=== PATIENT | female | born 1960 | race American Indian/Alaskan Native ===

== ENCOUNTER 2018-10-20 22:16 | Observation (INO) | payer BC ==
[2018-10-20 22:41] VITALS: BMI 24.1
--- NOTE | 2018-10-20 22:56 | PDOC ---
History of Present Illness - General Chief Complaint: Injury Stated Complaint: FALL/BLEEDING Time Seen by Provider: 10/20/18 22:55 - History of Present Illness Initial Comments: 10/21/18 00:03 The patient is a 58 year old female with a history of breast CA who presents for evaluation following a fall. The patient reports that she was at her birthday alliance party today and was in her room when she experienced palpitations and lightheadedness and then syncopated striking her face onto the floor. She states that she does not remember passing out and woke up on the floor after her family heard her fall. She notes that she has had episodes where she had palpitations and lightheadedness in the past, but has never "passed out" before. She otherwise denies headache, fevers, chills, chest pain, SOB, nausea , vomiting, abdominal pain, or changes with urination or bowel movements. Past History - Past Medical History Allergies/Adverse Reactions: Allergies Allergy/AdvReac Type Severity Reaction Status Date / Time No Known Allergies Allergy Verified 10/20/18 22:41 Home Medications: Ambulatory Orders Ascorbic Acid [Vitamin C] 250 mg PO DAILY 10/20/18 Aspirin 81 mg PO DAILY 10/20/18 Metformin HCl [Glucophage] 500 mg PO DAILY 10/20/18 Rosuvastatin Calcium [Crestor] 20 mg PO HS 10/20/18 Vit D3/Folic Acid/B2/B6/B12 [Folgard Tablet] 1 each PO DAILY 10/20/18 - Suicide/Smoking/Psychosocial Hx Smoking History: Never smoked Have you smoked in the past 12 months: No Information on smoking cessation initiated: No Hx Alcohol Use: Yes Drug/Substance Use Hx: No Review of Systems - Review of Systems Comments:: 10/21/18 00:07 Constitutional: No fevers, chills, fatigue, malaise HEENT: Head Trauma. No Rhinorrhea, nasal congestion, visual changes Cardiovascular: Syncope, palpitations, Lightheadedness. No chest pain, Respiratory: No Cough, SOB, Hemoptysis, Gastrointestinal: No Abdominal pain, Nausea, Vomiting, Constipation, Diarrhea, Melena Genitourinary: No Dysuria, Frequency, Urgency, Hesitancy, Hematuria, Flank pain Musculoskeletal: No Myalgia, arthralgia Skin: No rashes, itching, bruising, pallor Neurologic: No Headache, Dizziness, Numbness, Weakness, or Tingling Psychiatric: No Hallucinations. No SI or HI *Physical Exam - Vital Signs Last Vital Signs Temp Pulse Resp BP Pulse Ox 99.3 F 87 19 129/76 100 10/20/18 22:16 10/20/18 22:16 10/20/18 22:16 10/20/18 22:16 10/20/18 22:16 - Physical Exam Comments: 10/21/18 00:08 General Appearance: Nourished. No Apparent Distress HEENT: EOMI, HARRIS. 2cm laceration to the mucosal layer of the lower lip extending through to a 1cm laceration to the outer lower lip. 1cm laceration to the chin. No Pharyngeal Erythema, Tonsillar Exudate, Tonsillar Erythema Neck: No Cervical Lymphadenopathy Respiratory/Chest: Lungs Clear, Normal Breath Sounds. No Crackles, Rales, Rhonchi, Wheezing Cardiovascular: Regular Rhythm, Regular Rate. No Murmur, Gallops, Rubs Gastrointestinal/Abdominal: Normal Bowel Sounds, Soft. No Guarding, Rebound, Tenderness Musculoskeletal: No CVA Tenderness Extremity: Normal Capillary Refill Integumentary: Normal Color, Dry, Warm Neurologic: ceramics instructor II-XII NML intact, Fully Oriented, Alert, Normal Mood/Affect, Normal Response, Motor Strength 5/5. Procedures - Laceration/Wound Repair Lower Lip Wound Length: to 2.5 cm Wound Explored: clean, no foreign body present Wound's Depth, Shape: linear Irrigated w/ Saline: Yes Anesthesia: 1% Lidocaine Amount of Anesthetic (ccs): 4 Wound Repaired With: Sutures Suture Size/Type: 5:0, nylon Number of Sutures: 4 Layer Closure: Yes Deep Layer Suture Size/Type: 5:0, other (Polysorb) Number of Deep Layer Sutures: 2 Lower Jaw Wound Length: to 2.5 cm Wound Explored: clean, no foreign body present Wound's Depth, Shape: linear Irrigated w/ Saline: Yes Anesthesia: 1% Lidocaine Amount of Anesthetic (ccs): 2 Wound Repaired With: Sutures Suture Size/Type: 5:0, nylon Number of Sutures: 3 Layer Closure: Yes Sterile Dressing Applied: Yes Heart Score/ECG Review #1 ECG reviewed & interpreted by me at: 00:36 10/21/18 00:36 HR 81 SD 172 QRS 86 QTc 448 Normal Sinus Rhythm No Acute ST Changes ED Treatment Course - LABORATORY CBC & Chemistry Diagram: 10/20/18 23:50 10/20/18 23:50 Medical Decision Making - Medical Decision Making 10/21/18 00:10 The patient is a 58 year old female with a history of breast CA who presents for evaluation following a fall. Differential includes but is not limited to: ACS, Arrythmia, Intracranial Process, Infectious, Metabolic Derangement. Given the patient's history and physical exam, we will obtain a cbc, cmp, troponin, ua , ekg, chest plain film, head ct, facial bone ct, cervical ct to evaluate further. The patient's lacerations will require irrigation and repair. We will continue to monitor and reassess while here in the ED. 10/21/18 05:19 CBC, cmp, troponin, ua are unremarkable. Head CT, facial Bone CT, and cervical CT did not demonstrate any acute process as preliminarily read by our flight communications officer radiologist. The patient's laceration was repaired with sutures. Given the location of the patient's laceration within the mucosal layer of the patient's lower lip, the inner laceration was loosely repaired to help reduce the chance for infection and the patient will require antibiotic coverage on discharge. The patient's sutures will need to be removed in 7 days. Given the patient's syncopal episode, the patient will require admission for further monitoring and management. We discussed the case with the admitting team who accepted the patient for admission. *DC/Admit/Observation/Transfer Diagnosis at time of Disposition: Syncope and collapse - Discharge Dispostion Condition at time of disposition: Stable Decision to Admit order: Yes - Referrals - Patient Instructions - Post Discharge Activity
--- NOTE | 2018-10-21 | PDOC ---
Documentation entered by Irene Stevens SCRIBE, acting as scribe for Jem Chaudhari MD. Jem Chaudhari MD: This documentation has been prepared by the Hilda garcia Nirvannie, SCRIBE, under my direction and personally reviewed by me in its entirety. I confirm that the documentation accurately reflects all work, treatment, procedures, and medical decision making performed by me. Attending Attestation - Resident Resident Name: Elder Hirsch - ED Attending Attestation I have performed the following: I have examined & evaluated the patient, The case was reviewed & discussed with the resident, I agree w/resident's findings & plan, Exceptions are as noted - HPI HPI: 10/20/18 23:24 The patient is a 58 year old female, with a significant past medical history of breast cancer, who presents to the emergency department with syncopal episode. As per patient, she was dancing at a libertarian when she began to experience lightheadedness, palpitations, and subsequent LOC. Pt denies CP/SOB. Patient endorses similar episodes in the past, usually triggered by stress. She denies recent fevers, chills, or headache. She denies recent nausea, vomit, diarrhea or constipation. She denies recent dysuria, frequency, urgency or hematuria. Allergies: NKDA Past surgical history: None reported. Social history: Social alcohol usage. Nonsmoker. Denies recreational drug use. Familial History: Paternal and brother [place]. (Brother in 40s). Primary Care Physician: Dr. Con Pickering - Physicial Exam PE: 10/20/18 23:25 GENERAL: Awake, alert, and fully oriented, in no acute distress. HEAD: + through and through laceration to lower lip, 1cm outside, 2cm inside EYES: PERRLA, EOMI, sclera anicteric, conjunctiva clear ENT: Auricles normal inspection, hearing grossly normal, nares patent, oropharynx clear without exudates. Moist mucosa NECK: Nontender, no stepoffs, Normal ROM, supple, no lymphadenopathy, JVD, or masses LUNGS: Breath sounds equal, clear to auscultation bilaterally. No wheezes, and no crackles HEART: Regular rate and rhythm, normal S1 and S2, no murmurs, rubs or gallops ABDOMEN: Soft, nontender, normoactive bowel sounds. No guarding, no rebound. No masses EXTREMITIES: Normal range of motion, no edema. No clubbing or cyanosis. No cords, erythema, or tenderness NEUROLOGICAL: Cranial nerves II through XII intact. 5/5 strength and sensation in all extremities, Normal speech, normal gait, normal cerebellar function SKIN: Warm, Dry, normal turgor, no rashes or lesions noted. - Medical Decision Making 10/21/18 00:05 58 F with syncopal episode while dancing. Pt's EKG shows NSR. However, given palpitations and sudden LOC, concerning for possible paroxysmal arrhythmia. - Labs - CT head/c-spine/facial bones - Lac repair - Tele obs 10/21/18 02:21 Labs wnl CTs negative Lip lac repaired Will start prophylactic keflex given intraoral laceration Sutures to be removed in 5-7 days. Pt admitted to Dr. Pickering
[2018-10-21 00:03] LABS: EOS % 1.9 % (0-4.5); HEMATOCRIT 40.9 % (32.4-45.2); HEMOGLOBIN 13.2 GM/dL (10.7-15.3); MCH 28.9 pg (25.7-33.7); MCHC 32.2 g/dl (32.0-36.0); MEAN CELL VOLUME 89.6 fl (80-96); MEAN PLT VOLUME 8.7 fl (7.5-11.1); MONO % 6.8 % (3.8-10.2); NEUT % 60.3 % (42.8-82.8); PLATELET COUNT 181 K/MM3 (134-434); RBC 4.57 M/mm3 (3.60-5.2); RDW 13.7 % (11.6-15.6); WHITE BLOOD COUNT 7.9 K/mm3 (4.0-10.0)
[2018-10-21 00:22] LABS: URINE APPEARANCE CLEAR; URINE BILIRUBIN NEGATIVE (NEGATIVE); URINE COLOR YELLOW; URINE GLUCOSE (UA) NEGATIVE (NEGATIVE); URINE KETONE NEGATIVE (NEGATIVE); URINE LEUK ESTERASE TRACE (NEGATIVE); URINE NITRITE NEGATIVE (NEGATIVE); URINE PROTEIN NEGATIVE (NEGATIVE); URINE UROBILINOGEN 0.2 mg/dL (0.2-1.0)
[2018-10-21 00:25] LABS: EPI CELLS FEW /HPF (0-5/HPF); URINE BACTERIA 2 /hpf (NEGATIVE); URINE RBC 1 /hpf (0-4); URINE WBC 7 /hpf (0-5)
[2018-10-21 00:26] LABS: ALBUMIN 3.9 g/dl (3.4-5.0); ALK PHOS 74 U/L (45-117); ANION GAP 7 MMOL/L (8-16); BILIRUBIN,TOTAL 0.3 mg/dL (0.2-1); BLOOD UREA NITROGEN 12.6 mg/dL (7-18); CALCIUM 8.8 mg/dL (8.5-10.1); CHLORIDE 105 mmol/L (98-107); CO2 28 mmol/L (21-32); CREATININE 0.6 mg/dL (0.55-1.3); GLUCOSE,RANDOM 101 mg/dL (74-106); N-TERMINAL BNP 115.1 pg/ml (5-125); POTASSIUM 3.7 mmol/L (3.5-5.1); SGOT/AST 27 U/L (15-37); SGPT/ALT 37 U/L (13-61); SODIUM 140 mmol/L (136-145); TOT PROT 7.1 g/dl (6.4-8.2)
[2018-10-21] MEDS ORDERED: ACETAMINOPHEN 500 MG TABLET (FP) PO ONE (03:44)
[2018-10-21] MEDS ORDERED: CEPHALEXIN MONOHYDRATE 500 MG CAPSULE (UD) ONE (03:50)
[2018-10-21] MEDS ORDERED: ACETAMINOPHEN 325 MG TABLET (FP) ONE (03:50)
[2018-10-21] MEDS ORDERED: CEPHALEXIN MONOHYDRATE 500 MG CAPSULE (UD) PO ONE (03:54)
[2018-10-21] MEDS: CEPHALEXIN MONOHYDRATE 500 MG CAPSULE (UD) PO SCH ×2 (09:43→21:04)
[2018-10-21] MEDS: ASPIRIN COATED 81 MG TABLET.EC PO SCH (09:43)
--- NOTE | 2018-10-21 09:46 | CON.NEURO ---
Consult - History of Present Illness History of Present Illness: 58 year old female, with a significant past medical history of breast cancer ( hx of lumpectomy, chemo, RT> 10 yrs ago) , who presents to the emergency department with syncopal episode. As per patient, she was dancing at a alliance party when she began to experience lightheadedness, palpitations, and subsequent LOC. Pt denies CP/SOB. Patient endorses similar episodes in the past, usually triggered by stress, few times this yr. no hx of seizure, no toxic habits. She denies recent fevers, chills, or headache. She denies recent nausea, vomit, diarrhea or constipation. She denies recent dysuria, frequency, urgency or hematuria. HD CT (-), CT C spine : DJD R AA, and C4-C5 R CBC , SMA7, lFTS NL , UA (-) Allergies: NKDA Past surgical history: None reported. Social history: Social alcohol usage. Nonsmoker. Denies recreational drug use. Familial History: Paternal and brother [place]. (Brother in 40s). - Alcohol/Substance Use Hx Alcohol Use: Yes - Smoking History Smoking history: Never smoked Have you smoked in the past 12 months: No Home Medications - Allergies Allergies/Adverse Reactions: Allergies Allergy/AdvReac Type Severity Reaction Status Date / Time No Known Allergies Allergy Verified 10/20/18 22:41 - Home Medications Home Medications: Ambulatory Orders Ascorbic Acid [Vitamin C] 250 mg PO DAILY 10/20/18 Aspirin 81 mg PO DAILY 10/20/18 Metformin HCl [Glucophage] 500 mg PO DAILY 10/20/18 Rosuvastatin Calcium [Crestor] 20 mg PO HS 10/20/18 Vit D3/Folic Acid/B2/B6/B12 [Folgard Tablet] 1 each PO DAILY 10/20/18 Physical Exam-Neuro Vital Signs: Vital Signs Temperature 98.8 F 10/21/18 04:55 Pulse Rate 88 10/21/18 04:55 Respiratory Rate 18 10/21/18 04:55 Blood Pressure 143/89 10/21/18 04:55 O2 Sat by Pulse Oximetry (%) 98 10/21/18 04:55 Labs: CBC, BMP 10/20/18 23:50 10/20/18 23:50 Imaging - Results Cat Scan: Report Reviewed, Image Reviewed Problem List - Problems (1) Syncope and collapse Code(s): R55 - SYNCOPE AND COLLAPSE Assessment/Plan 58 year old female, with a significant past medical history of breast cancer, who presents to the emergency department with syncopal episode. As per patient, she was dancing at a alliance party when she began to experience lightheadedness, palpitations, and subsequent LOC. Pt denies CP/SOB. Patient endorses similar episodes in the past, usually triggered by stress. She denies recent fevers, chills; She denies recent nausea, vomit, diarrhea or constipation. She denies recent dysuria, frequency, urgency or hematuria. HD CT (-), CT C spine : DJD R AA, and C4-C5 R CBC , SMA7, lFTS NL , UA (-) AP : Syncopal episode associated with palpitations. nonfocal neruo exam--no clinical evidence to suggest seizure and doubt posterior circulation event. HX of COREY (preceding this)-- check MRI and DOPPLERS cardiology consult called -arrhythmia ACE. no AED needed at this juncture. DR WHITLEY
--- NOTE | 2018-10-21 10:17 | HP ---
Admitting History and Physical - Admission Chief Complaint: pt lost conscouness this am had episode palps last pm and this am also woke up rememberedbv what happened denied any other symptoms. no cp no n/v no sob doubt had seizureot witnessed sustained low lip cut and rt chin cut sutured in er ct neg faical bone pnd results History Source: Patient Limitations to Obtaining History: No Limitations - Past Medical History Reproductive: Yes: Other (h/o brest ca) ...: No ENT: Yes: Other (low lip chin sutures intact) Additional Past Medical History: diabetes 2 - Smoking History Smoking history: Never smoked Have you smoked in the past 12 months: No - Alcohol/Substance Use Hx Alcohol Use: No - Social History Usual Living Arrangement: Yes: With Spouse History of Recent Travel: No Home Medications - Allergies Allergies/Adverse Reactions: Allergies Allergy/AdvReac Type Severity Reaction Status Date / Time No Known Allergies Allergy Verified 10/20/18 22:41 - Home Medications Home Medications: Ambulatory Orders Ascorbic Acid [Vitamin C] 250 mg PO DAILY 10/20/18 Aspirin 81 mg PO DAILY 10/20/18 Metformin HCl [Glucophage] 500 mg PO DAILY 10/20/18 Rosuvastatin Calcium [Crestor] 20 mg PO HS 10/20/18 Vit D3/Folic Acid/B2/B6/B12 [Folgard Tablet] 1 each PO DAILY 10/20/18 Family Disease History - Family Disease History Family History: Unremarkable Review of Systems - Review of Systems Constitutional: reports: No Symptoms Eyes: reports: No Symptoms HENT: reports: No Symptoms Neck: reports: No Symptoms Cardiovascular: reports: No Symptoms Respiratory: reports: No Symptoms Gastrointestinal: reports: No Symptoms Genitourinary: reports: No Symptoms Breasts: reports: No Symptoms Reported Musculoskeletal: reports: No Symptoms Integumentary: reports: Other (healing wds) Neurological: reports: No Symptoms Endocrine: reports: No Symptoms Hematology/Lymphatic: reports: No Symptoms Psychiatric: reports: No Symptoms Physical Examination Vital Signs: Vital Signs Temperature 98.8 F 10/21/18 04:55 Pulse Rate 88 10/21/18 04:55 Respiratory Rate 18 10/21/18 04:55 Blood Pressure 143/89 10/21/18 04:55 O2 Sat by Pulse Oximetry (%) 98 10/21/18 04:55 Constitutional: Yes: Well Nourished Eyes: Yes: WNL HENT: Yes: WNL Neck: Yes: WNL Cardiovascular: Yes: WNL Respiratory: Yes: WNL Gastrointestinal: Yes: WNL ...Rectal Exam: Yes: Other Renal/: Yes: Urethral Discharge Musculoskeletal: Yes: WNL Extremities: Yes: WNL Edema: No Peripheral Pulses WNL: Yes Integumentary: Yes: Laceration (healing) Wound/Incision: Yes: Clean/Dry Labs: CBC, BMP 10/20/18 23:50 10/20/18 23:50 Assessment/Plan chk facial bone xrays mri pnd card ? 24 hr event recorder outpt?? cont all tx as is chk echo caratid to complete w/u
--- NOTE | 2018-10-21 11:08 | EKG ---
Test Reason : Blood Pressure : / mmHG Vent. Rate : 069 BPM Atrial Rate : 069 BPM P-R Int : 170 ms QRS Dur : 088 ms QT Int : 426 ms P-R-T Axes : 044 001 -09 degrees QTc Int : 456 ms NORMAL SINUS RHYTHM NORMAL ECG WHEN COMPARED WITH ECG OF 20-OCT-2018 22:19, CRITERIA FOR SEPTAL INFARCT ARE NO LONGER PRESENT Confirmed by GISELE LAWRENCE MD ([id number]) on 10/21/2018 11:08:03 AM [facility] Confirmed By:GISELE LAWRENCE MD
--- NOTE | 2018-10-21 11:16 | EKG ---
Test Reason : Blood Pressure : / mmHG Vent. Rate : 081 BPM Atrial Rate : 081 BPM P-R Int : 172 ms QRS Dur : 086 ms QT Int : 386 ms P-R-T Axes : 031 019 019 degrees QTc Int : 448 ms POOR DATA QUALITY, INTERPRETATION MAY BE ADVERSELY AFFECTED NORMAL SINUS RHYTHM POSSIBLE LEFT ATRIAL ENLARGEMENT SEPTAL INFARCT , AGE UNDETERMINED ABNORMAL ECG NO PREVIOUS ECGS AVAILABLE Confirmed by GISELE LAWRENCE MD ([id number]) on 10/21/2018 11:16:12 AM Referred By: Confirmed By:GISELE LAWRENCE MD
--- NOTE | 2018-10-21 13:00 | ECHO ---
Name: SOHAIL HART Exam:Adult Echocardiogram Study Date: 10/21/2018 11:50 AM Age: 58 yrs Reason For Study: syncope r/o valvular dz Height: 61 in Weight: 128 lb BSA: 1.6 m2 MMode/2D Measurements & Calculations IVSd: 0.90 cm Ao root diam: 2.8 cm LVIDd: 3.9 cm LA dimension: 3.4 cm LVIDs: 2.5 cm LVPWd: 0.90 cm LVPWs: 1.1 cm EDV(Teich): 65.0 ml ESV(Teich): 23.3 ml LVOT diam: 2.0 cm LAV (MOD-bp): 42.0 ml Doppler Measurements & Calculations MV E max iain: 48.4 cm/sec Ao V2 max: 112.6 cm/sec MV A max iain: 66.1 cm/sec Ao max P.1 mmHg MV E/A: 0.73 Ao V2 mean: 84.1 cm/sec MV dec time: 0.13 sec Ao mean P.3 mmHg Ao V2 VTI: 22.8 cm ESTIVEN(I,D): 2.4 cm2 ESTIVEN(V,D): 2.4 cm2 LV V1 max P.0 mmHg MR max iain: 439.4 cm/sec LV V1 mean P.7 mmHg MR max P.2 mmHg LV V1 max: 85.9 cm/sec LV V1 mean: 63.0 cm/sec LV V1 VTI: 17.1 cm SV(LVOT): 54.3 ml TR max iain: 235.9 cm/sec TR max P.4 mmHg PA V2 max: 109.3 cm/sec Med Peak E' Iain: 4.6 cm/sec PA max P.8 mmHg Med E/e': 10.5 Lat Peak E' Iain: 8.8 cm/sec Lat E/e': 5.5 Procedure The study was technically adequate with some images being suboptimal in quality. Left Ventricle The left ventricular size, thickness and function are normal. Ejection Fraction = 60-65%. Right Ventricle The right ventricle is normal in size and function. Atria Normal left and right atrial size and function. Mitral Valve There is mild mitral annular calcification. There is mild mitral valve prolapse. There is mild to mod erate mitral regurgitation. Tricuspid Valve The tricuspid valve is not well visualized, but is grossly normal. There is mild to moderate tricuspi d regurgitation. Right ventricular systolic pressure is 27 mmhg. Aortic Valve There is mild aortic sclerosis.;. The aortic valve opens well. The aortic valve is trileaflet. Trace aortic regurgitation. Pulmonic Valve The pulmonic valve is not well visualized. Great Vessels The aortic root is normal size. Pericardium/Pleura There is no pericardial effusion. Interpretation Summary There is no comparison study available. The left ventricular size, thickness and function are normal Ejection Fraction = 60-65%. The right ventricle is normal in size and function. Trace aortic regurgitation. There is mild to moderate tricuspid regurgitation. There is mild mitral valve prolapse. There is mild to moderate mitral regurgitation. Justus Cr MD 10/21/2018 01:00 PM
--- NOTE | 2018-10-21 13:39 | CON.CARD ---
Consult Consult Specialty:: Cardioloy - History of Present Illness Chief Complaint: syncope History of Present Illness: 58 F with a remote ho LT sided breast ca managed with lumpectomy, radiation and chemo. ho intermittent palpitations for years lasting few secs. Had not eaten well yesterday and at night time felt dizzy, heart racing and then LOC resulting in lip and chin laceration. Few min later vomited. No CP, dyspnea. Has no change in exercise capacity. Echocardiogram today showed normal LV function without significant valvulopathy ot pulmonary HTN. - History Source History Provided By: Patient Limitations to Obtaining History: No Limitations - Past Medical History ...: No ENT: Yes: Other (low lip chin sutures intact) - Alcohol/Substance Use Hx Alcohol Use: No - Smoking History Smoking history: Never smoked Have you smoked in the past 12 months: No - Social History History of Recent Travel: No Home Medications - Allergies Allergies/Adverse Reactions: Allergies Allergy/AdvReac Type Severity Reaction Status Date / Time No Known Allergies Allergy Verified 10/20/18 22:41 - Home Medications Home Medications: Ambulatory Orders Ascorbic Acid [Vitamin C] 250 mg PO DAILY 10/20/18 Aspirin 81 mg PO DAILY 10/20/18 Metformin HCl [Glucophage] 500 mg PO DAILY 10/20/18 Rosuvastatin Calcium [Crestor] 20 mg PO HS 10/20/18 Vit D3/Folic Acid/B2/B6/B12 [Folgard Tablet] 1 each PO DAILY 10/20/18 Review of Systems - Review of Systems Constitutional: reports: No Symptoms Eyes: reports: No Symptoms HENT: reports: No Symptoms Neck: reports: No Symptoms Cardiovascular: reports: No Symptoms Respiratory: reports: No Symptoms Gastrointestinal: reports: No Symptoms Genitourinary: reports: No Symptoms Breasts: reports: No Symptoms Reported Musculoskeletal: reports: No Symptoms Integumentary: reports: No Symptoms Vital Signs: Vital Signs Temperature 98.8 F 10/21/18 04:55 Pulse Rate 67 10/21/18 08:32 Respiratory Rate 19 10/21/18 08:32 Blood Pressure 137/70 10/21/18 08:32 O2 Sat by Pulse Oximetry (%) 98 10/21/18 08:32 Constitutional: Yes: Well Nourished, No Distress Eyes: Yes: Conjunctiva Clear HENT: Yes: Atraumatic, Normocephalic Neck: Yes: Supple, Trachea Midline Respiratory: Yes: Regular, CTA Bilaterally Gastrointestinal: Yes: Normal Bowel Sounds, Soft Cardiovascular: Yes: Regular Rate and Rhythm JVD: No Carotid Bruit: No PMI: Non-Displaced Heart Sounds: Yes: S1, S2 Murmur: No: Systolic Murmur, Diastolic Murmur Edema: No Peripheral Pulses WNL: Yes - Other Data Labs, Other Data: CBC, BMP 10/20/18 23:50 10/20/18 23:50 Troponin, BNP 10/20/18 10/21/18 23:50 10:15 Troponin I < 0.02 < 0.02 B-Natriuretic Peptide 115.1 Troponin, BNP 10/20/18 10/21/18 23:50 10:15 Troponin I < 0.02 < 0.02 B-Natriuretic Peptide 115.[address] T changes. Echo: Report Reviewed Imaging - Results X-ray: Report Reviewed Problem List - Problems (1) Syncope and collapse Code(s): R55 - SYNCOPE AND COLLAPSE Assessment/Plan Her history suggests likely vasovagal syncope. Normal ECG, echocardiograM AND EXAM. Rec Monitor on telemetry overnight. Can consider out patient event monitor placement given ho palpitations. discussed avoidance measures including hydration and PO intake in addition to isometric exercises. If recurrent symptoms, can consider lower extremity compression stockings as well.
[2018-10-21] MEDS ORDERED: LORATADINE 10 MG TABLET PO ONE (17:30)
[2018-10-21] MEDS: guaiFENesin 200 MG/10 ML 10 ML UNIT-DOSE CUPS PO PRN (19:01)
[2018-10-21] MEDS ORDERED: ATORVASTATIN CA 20 MG TABLET (FP) PO SCH (22:00)
--- NOTE | 2018-10-22 08:47 | DS ---
Physical Examination Vital Signs: Vital Signs Temperature 98 F 10/22/18 05:00 Pulse Rate 74 10/22/18 05:00 Respiratory Rate 18 10/22/18 05:00 Blood Pressure 126/75 10/22/18 05:00 O2 Sat by Pulse Oximetry (%) 98 10/22/18 03:56 Constitutional: Yes: Well Nourished Eyes: Yes: WNL HENT: Yes: WNL Neck: Yes: WNL Cardiovascular: Yes: WNL Respiratory: Yes: WNL Gastrointestinal: Yes: WNL ...Rectal Exam: Yes: WNL, Deferred Renal/: Yes: WNL Breast(s): Yes: WNL Musculoskeletal: Yes: WNL Extremities: Yes: WNL Edema: No Peripheral Pulses WNL: Yes Integumentary: Yes: WNL Wound/Incision: Yes: Clean/Dry Neurological: Yes: WNL, Alert, Oriented ...Motor Strength: WNL Psychiatric: Yes: WNL Labs: CBC, BMP 10/20/18 23:50 10/20/18 23:50 Discharge Summary Reason For Visit: SYNCOPE AND COLLAPSE Current Active Problems Syncope and collapse (Acute) Condition: Stable - Instructions Diet, Activity, Other Instructions: appt w me thusrday 1200 [place] all tx at home as is will remove stiches in my office Disposition: HOME - Home Medications Comprehensive Discharge Medication List: Ambulatory Orders Ascorbic Acid [Vitamin C] 250 mg PO DAILY 10/20/18 Aspirin 81 mg PO DAILY 10/20/18 Metformin HCl [Glucophage] 500 mg PO DAILY 10/20/18 Rosuvastatin Calcium [Crestor] 20 mg PO HS 10/20/18 Vit D3/Folic Acid/B2/B6/B12 [Folgard Tablet] 1 each PO DAILY 10/20/18
[2018-10-22] MEDS: ASPIRIN COATED 81 MG TABLET.EC PO SCH (09:27)
[2018-10-22] MEDS: guaiFENesin 200 MG/10 ML 10 ML UNIT-DOSE CUPS PO PRN (09:31)
[2018-10-22 09:35] VITALS: BP 133/80; PULSE 83; TEMP 98.6
--- NOTE | 2018-10-22 10:34 | PN ---
Progress Note, Physician Chief Complaint: Cards Noel NSR No arrhythmia History of Present Illness: 58 F with a remote ho LT sided breast ca managed with lumpectomy, radiation and chemo. ho intermittent palpitations for years lasting few secs. Had not eaten well yesterday and at night time felt dizzy, heart racing and then LOC resulting in lip and chin laceration. Few min later vomited. No CP, dyspnea. Has no change in exercise capacity. Echocardiogram today showed normal LV function without significant valvulopathy ot pulmonary HTN. - Current Medication List Current Medications: Active Medications Aspirin (Ecotrin -) 81 mg PO DAILY [facility] Last Admin: 10/22/18 09:27 Dose: 81 mg Atorvastatin Calcium (Lipitor -) 20 mg PO HS [facility] Last Admin: 10/21/18 21:04 Dose: 20 mg Guaifenesin (Robitussin -) 10 ml PO Q6H PRN PRN Reason: COUGH Last Admin: 10/22/18 09:31 Dose: 10 ml - Objective Vital Signs: Vital Signs Temperature 98.6 F 10/22/18 09:00 Pulse Rate 83 10/22/18 09:00 Respiratory Rate 18 10/22/18 09:00 Blood Pressure 133/80 10/22/18 09:00 O2 Sat by Pulse Oximetry (%) 98 10/22/18 03:56 Constitutional: Yes: Well Nourished, No Distress Eyes: Yes: Conjunctiva Clear HENT: Yes: Atraumatic, Normocephalic Neck: Yes: Trachea Midline Cardiovascular: Yes: Regular Rate and Rhythm Respiratory: Yes: Regular, CTA Bilaterally Gastrointestinal: Yes: Normal Bowel Sounds Edema: No Labs: CBC, BMP 10/20/18 23:50 10/20/18 23:50 Problem List - Problems (1) Syncope and collapse Code(s): R55 - SYNCOPE AND COLLAPSE Assessment/Plan Her history suggests likely vasovagal syncope. Normal ECG, echocardiograM AND EXAM. Rec Can consider out patient event monitor placement given ho palpitations. discussed avoidance measures including hydration and PO intake in addition to isometric exercises. If recurrent symptoms, can consider lower extremity compression stockings as well. Cleared for DC from cardiac perspective. Will see as needed.
== END 2018-10-22 12:23 | disposition home or self-care (01) ==
LOC: JER 22:16 → INTOOBSV 10-21 01:50 → UNDOADMOB 10-21 01:50 → JERBED 10-21 01:50 → J4W 10-21 04:35 → JERBED 10-21 04:35 → J4W 10-21 08:28 → JERBED 10-21 08:28
PROVIDERS: ADMIT Family Medicine; ATTEND Family Medicine
PROC: 0CQ13ZZ Repair Lower Lip, Percutaneous Approach (ICD-10-PCS; principal; 2018-10-21)
DX: R55 Syncope and collapse (principal); S01.511A Laceration without foreign body of lip, initial encounter; W18.39XA Other fall on same level, initial encounter; Y93.41 Activity, dancing; Y92.89 Other specified places as the place of occurrence of the external cause; Y99.8 Other external cause status; Z85.3 Personal history of malignant neoplasm of breast
CPT/HCPCS: 36415; 70450-TC; 70486-TC; 70551-TC; 71046-TC-FY; 72125-TC; 80053; 81003; 82550; 82553; 82962; 83036; 83880; 84443; 84484; 85025; 93005; 93010; 93306-TC; 93880-TC; 99285-25; G0378

== ENCOUNTER 2020-08-09 14:36 | Emergency (ER) | payer BC ==
[2020-08-09 15:17] VITALS: BP 109/78; PULSE 82; TEMP 98.4; BMI 25.5
== END 2020-08-09 16:58 | disposition home or self-care (01) ==
LOC: JER 14:36
DX: U07.1 COVID-19 (principal)
CPT/HCPCS: 71046-TC-FY; 99284-25